=== PATIENT | female | born 1945 | race Caucasian/White ===

== ENCOUNTER 2018-08-09 09:41 | Inpatient (IN) ==
--- NOTE | 2018-08-04 14:30 | MH ---
cc: Megan Reagan MD DATE OF ADMISSION: 08/09/2018 DATE OF ADMISSION: 08/09/2018. ADMITTING DIAGNOSIS: Osteoarthritic degeneration right hip; now being admitted for right total hip arthroplasty. HISTORY OF PRESENT ILLNESS: A pleasant 72-year-old female is being admitted today for right total hip arthroplasty with severe painful osteoarthritic degeneration, right hip. PAST MEDICAL HISTORY: The patient has a history of heart disease, hypertension, low back pain. CURRENT MEDICATIONS: Include: 1. Paroxetine. 2. Metoprolol. 3. Hydrochlorothiazide. 4. Alendronate. 5. Metformin. 6. Zetia. 7. Avastin. PAST SURGICAL HISTORY: Include open reduction internal fixation of the wrist. REVIEW OF SYSTEMS: Noncontributory. FAMILY HISTORY: Noncontributory. She drinks socially and has not smoked in 30 years. ALLERGIES: SHE HAS ALLERGY TO IBUPROFEN. PHYSICAL EXAMINATION: GENERAL: We find a 72-year-old female, well-developed, well-nourished; alert and oriented x 3, complaining of pain in right hip. VITAL SIGNS: Blood pressure 117/73, pulse 72 and regular, respirations 16, temperature 98.0, pulse oximetry 96% on room air. HEENT: Eyes PERRLA, EOMI. Ears, nose, mouth clear. NECK: Supple. LUNGS: Clear. HEART: Regular rate. ABDOMEN: Soft, positive bowel sounds, nontender. EXTREMITIES: Reveal the right hip to have decreased range of motion. Neurovascularly intact to her toes. IMPRESSION: Severe painful osteoarthritic degeneration, right hip. PLAN: Admission for right total hip arthroplasty today. The patient was given prescription for postoperative pain control and anticoagulation therapy in the office. JArnold Reagan MD JRJuma/nikia , 01:55 PM , 02:02 PM
[2018-08-09] MEDS ORDERED: Chlorhexidine Gluconate 2% 1 Pack (2 Cloths) TOPICAL SCH (10:23)
[2018-08-09] MEDS ORDERED: Acetaminophen 325 MG Tablet PO PRN (10:30)
[2018-08-09] MEDS ORDERED: Chlorhexidine 4% Topical 120 APPLIC/120 ML Bottle TOPICAL SCH (10:30)
[2018-08-09] MEDS ORDERED: Post-op Orders (for Pharmacy) OTHER STA (10:31)
[2018-08-09] MEDS ORDERED: Bisacodyl 10 MG Supp RECTAL PRN (10:31)
[2018-08-09] MEDS ORDERED: Morphine Sulfate Inj 2 MG/ML Vial IV.PUSH PRN (10:31)
--- NOTE | 2018-08-09 10:37 | P.DCO ---
- Diagnosis (1) Status post total replacement of right hip Status: Acute - Physical Therapy Order: Evaluate and treat, Improve ambulation, Strength and gait training - Home Health Nursing Order: Medical education, Nursing assessment with vital signs - Case Management Consult Yes - Certification I have seen patient Kwasi Rogel on 08/09/18. My clinical findings support the need for the requested home health care services because: Limited ability to care for self, High risk of falls I certify that my clinical findings support that this patient is homebound because: Post-op weakness, Unsteady gait/balance, Unsafe to leave home unassisted
[2018-08-09] MEDS ORDERED: TRANEXAMIC ACID IV.SIG SCH ×4 (11:00)
[2018-08-09] MEDS ORDERED: Vancomycin Inj 1,000 MG in Sodium Chlor 0.9% Inj 250 ML IV.SIG SCH (11:00)
[2018-08-09] MEDS ORDERED: Sodium Chlor 0.9% Inj 80 ML, Bupivacaine Liposo PF 1.3% Inj 20 ML, Bupivacaine 0.25% In... P-ARTICULR SCH ×3 (11:00)
[2018-08-09] MEDS ORDERED: Sodium Chlor 0.9% Inj 500 ML IV.SIG SCH (11:00)
[2018-08-09] MEDS ORDERED: ceFAZolin 2 GM Premix Inj 2 GM/50 ML PIGGYBACK IV.SIG SCH (11:00)
[2018-08-09] MEDS ORDERED: SODIUM CHLOR 0.9% IV.SIG SCH ×4 (11:00)
--- NOTE | 2018-08-09 11:21 | P.CONIM ---
History of Present Illness Primary Care Provider: Ede Somers MD, PhD History of Present Illness: This is a 72-year-old female patient with past medical history which includes chronic kidney disease stage 3, Hypertension, diabetes mellitus type 2, hyperlipidemia, osteopenia, breast cancer status post radiation and lumpectomy, CAD and hyperparathyroidism. Patient presents the hospital today due to OA of right hip for right total hip replacement with Dr. Reagan. We have been consulted to assist with medical management postoperatively. Patient seen in pre-op holding information gathered from patient as well as prior computerized chart. Patient offers no specific complaints at this time, denies shortness of breath chest pain nausea vomiting diarrhea constipation fevers or chills. PMH: chronic kidney disease stage 3, Hypertension, diabetes mellitus type 2, hyperlipidemia, osteopenia, breast cancer status post radiation and lumpectomy, CAD and hyperparathyroidism PSxH: Colonoscopy, EGD, left breast lumpectomy, treatment of wrist fracture FMH: Reviewed and noncontributory Social History: Patient is , retired Rare EtOH use Former tobacco use no current tobacco use [facility] Social History Social History Substance History: No History of Abuse Second Hand Smoke Exposure: No Smoking Status: Former smoker Tobacco Type: Cigarettes How Often Do You Have a Drink Containing Alcohol: Monthly or less Recent Travel in [facility] within the Last 8 Weeks: No Recent Out of Country Travel within the Last 8 Weeks: No Medications and Allergies Allergies Allergy/AdvReac Type Severity Reaction Status Date / Time ibuprofen Allergy Severe Itching Verified 08/09/18 10:21 lisinopril Allergy Itching Verified 08/09/18 10:21 Home Medications Medication Instructions Recorded Confirmed Type Ca-D3-mag tn-stfl-kwd-walter-bor 1 tab PO EVERY OTHER DAY 08/02/18 08/09/18 History [Calcium 600-D3 Plus] acetaminophen [Tylenol Arthritis 650 mg PO Q8H PRN 08/02/18 08/09/18 History Pain] alendronate 70 mg PO WEEKLY 08/02/18 08/09/18 History atorvastatin 80 mg PO DAILY 08/02/18 08/09/18 History cinnamon bark [Cinnamon] 1,000 mg PO EVERY OTHER DAY 08/02/18 08/09/18 History cyanocobalamin (vitamin B-12) 1,000 mcg PO DAILY 08/02/18 08/09/18 History [Vitamin B-12] ezetimibe 10 mg PO DAILY 08/02/18 08/09/18 History hydrochlorothiazide 25 mg PO DAILY 08/02/18 08/09/18 History metformin 250 mg PO BID 08/02/18 08/09/18 History metoprolol tartrate 25 mg PO DAILY 08/02/18 08/09/18 History paroxetine HCl 12.5 mg PO DAILY 08/02/18 08/09/18 History Active Medications: Active Medications Acetaminophen (Tylenol) 650 mg PO Q8H PRN PRN Reason: ARTHRITIS PAIN Hydrocodone Bitart/Acetaminophen (Roosevelt 7.5/325) 1 tab PO Q4H PRN PRN Reason: PAIN LESS THAN 5 ON SCALE Hydrocodone Bitart/Acetaminophen (Roosevelt 7.5/325) 2 tab PO Q6H PRN PRN Reason: PAIN SCALE 5 TO 10 Al Hydroxide/Mg Hydroxide (Milk Of Magnesia Liq) 30 ml PO BID PRN PRN Reason: Mild Constipation Apixaban (Eliquis) 2.5 mg PO BID [facility] Atorvastatin Calcium (Lipitor) 80 mg PO DAILY [facility] Bisacodyl (Dulcolax Supp) 10 mg RECTAL DAILY PRN PRN Reason: SEVERE CONSITIPATION Calcium/Vitamin D (Oscal With D 250/125 Mg) 2 tab PO EVERY OTHER DAY [facility] Chlorhexidine Gluconate (Chlorhexidine 2% Cloth) 3 pack TOPICAL [employer] [facility] Stop: 08/12/18 10:22 Chlorhexidine Gluconate (Hibiclens 4% Topical) 1 applicatio TOPICAL [employer] [facility] Stop: 08/12/18 10:29 Sodium Chloride 80 ml/Bupivacaine Liposome 20 ml/Bupivacaine HCl 20 ml 0 ml P- ARTICULR [employer] [employer] [facility] Stop: 08/09/18 17:00 Cyanocobalamin (Vitamin B12) 1,000 mcg PO DAILY [facility] Ezetimibe (Zetia) 10 mg PO DAILY [facility] Hydrochlorothiazide (Hydrodiuril) 25 mg PO DAILY [facility] Lactated Ringer's (Lr 1000 Ml Inj) 1,000 mls @ 30 mls/hr IV.SIG .Q24H [facility] Stop: 08/12/18 10:29 Sodium Chloride (Ns Inj) 500 mls @ 30 mls/hr IV.SIG .Q10H [facility] Vancomycin HCl 1,000 mg/ (Sodium Chloride) 250 mls @ 250 mls/hr IV.SIG [employer] [facility] Stop: 08/12/18 10:29 Cefazolin Sodium/Dextrose (Ancef 2 Gm Premix Inj) 2 gm in 50 mls @ 100 mls/hr IV.SIG [employer] [facility] Stop: 08/13/18 10:59 Cefazolin Sodium 1,000 mg/ (Sodium Chloride) 100 mls @ 200 mls/hr IV.SIG Q6H [facility] Stop: 08/09/18 23:29 Lactated Ringer's (Lr 1000 Ml Inj) 1,000 mls @ 80 mls/hr IV.CONT .[id number] [facility] Tranexamic Acid 1,000 mg/ (Sodium Chloride) 110 mls @ 200 mls/hr IV.SIG [employer] [facility] [facility] Stop: 08/09/18 20:00 Tranexamic Acid 624 mg/ Sodium (Chloride) 106.24 mls @ 200 mls/hr IV.SIG [employer] [facility] Stop: 08/09/18 17:00 Lactulose (Lactulose Liq) 30 ml PO DAILY PRN PRN Reason: SEVERE CONSITIPATION Metformin HCl (Glucophage) 250 mg PO BID [facility] Metoprolol Tartrate (Lopressor) 25 mg PO [employer] [facility] Metoprolol Tartrate (Lopressor) 25 mg PO DAILY [facility] Morphine Sulfate (Morphine Inj) 2 mg IV.PUSH Q3H PRN PRN Reason: BREAKTHROUGH PAIN Multivitamins/Minerals (Theragran-M) 1 tab PO BID [facility] Stop: 10/08/18 20:59 Ondansetron HCl (Zofran Odt) 4 mg PO Q6H PRN PRN Reason: NAUSEA OR VOMITING Paroxetine HCl (Paxil Cr) 12.5 mg PO DAILY [facility] Povidone Iodine (Betadine 5% Antisepsis Kit) 1 applicatio EACH NARE [employer] [facility] Stop: 08/12/18 10:22 Senna/Docusate Sodium (Manju-Colace) 1 tab PO BID [facility] Sennosides (Senokot) 17.2 mg PO BID PRN PRN Reason: Moderate Constipation Sodium Chloride (Ns Flush) 2 ml IV.FLUSH BID [facility] Sodium Chloride (Ns Flush) 2 ml IV.FLUSH PRN PRN PRN Reason: FLUSH AFTER USING IV ACCESS Physical Exam Vital signs: Last Vital Signs Temp 98.4 F 08/09/18 10:29 Pulse 66 08/09/18 10:29 Resp 18 08/09/18 10:29 BP 151/78 H 08/09/18 10:29 Pulse Ox 100 08/09/18 10:29 Narrative: GENERAL: This is a well-nourished, well-developed patient, in no apparent distress. CARDIOVASCULAR: Regular rate and rhythm RESPIRATORY: Clear to auscultation. Breath sounds equal bilaterally. GASTROINTESTINAL: Abdomen soft, non-tender, nondistended. Normoactive bowel sounds MUSCULOSKELETAL: Extremities without clubbing, cyanosis, or edema. NEURO: Alert & Oriented x4 to person, place, time, situation. Moves all ext x4 Assessment and Plan Assessment (1) Status post total replacement of right hip: Code(s): Z96.641 - Presence of right artificial hip joint Status: Acute Plan This is a 72-year-old female patient with past medical history which includes chronic kidney disease stage 3, Hypertension, diabetes mellitus type 2, hyperlipidemia, osteopenia, breast cancer status post radiation and lumpectomy, CAD and hyperparathyroidism. Patient presents the hospital today due to OA of right hip for right total hip replacement with Dr. Reagan. We have been consulted to assist with medical management postoperatively. Patient seen in pre-op holding information gathered from patient as well as prior computerized chart. Patient offers no specific complaints at this time endorses, denies shortness of breath chest pain nausea vomiting diarrhea constipation fevers or chills. OA Patient presents the hospital today due to OA of right hip for right total hip replacement with Dr. Reagan Chronic kidney disease stage 3 Avoid nephrotoxins Monitor renal function Hypertension Continue patient's home metoprolol Diabetes mellitus type 2 Continue patient's home metformin Diabetic diet Accuchecks ACHS Hyperlipidemia Continue home atorvastatin and Zetia Breast cancer status post radiation and lumpectomy Depression Continue patient's home Paroxetine Hyperparathyroidism Continue home medications SCD prophylaxis per Orthopedic surgery Attending Attestation Patient examined. Assessment and plan formulated with Danuta Cruz PA-C. I agree with the above.
[2018-08-09] MEDS ORDERED: Dextrose 50% in Water 50 ML Vial IV.PUSH PRN (11:24)
[2018-08-09] MEDS: Metoprolol Tartrate 25 MG Tablet PO SCH (11:27)
[2018-08-09] MEDS ORDERED: Tranexamic Acid Inj 1,000 MG in Sodium Chlor 0.9% Inj 100 ML IV.SIG SCH (14:00)
[2018-08-09] MEDS ORDERED: Lidocaine PF 1% Inj 5 ML Syringe OTHER ONE (14:51)
[2018-08-09] MEDS ORDERED: Neostigmine Inj 5 MG/5 ML Syringe IV.PUSH ONE (14:51)
[2018-08-09] MEDS ORDERED: Glycopyrrolate Inj 1 MG/5 ML Syringe IV.PUSH ONE (14:51)
[2018-08-09] MEDS ORDERED: Sugammadex Inj 200 MG/2 ML Vial IV.PUSH ONE (16:59)
[2018-08-09] MEDS ORDERED: fentaNYL Citrate Inj 100 MCG/2 ML Ampul ONE (17:18)
--- NOTE | 2018-08-09 17:26 | P.BOP ---
- Preoperative Diagnosis (1) Osteoarthritis of right hip - Postoperative Diagnosis (1) Status post total replacement of right hip Date of procedure: 08/09/18 Procedure: Right total Hip Arthroplasty Implants: see implant record Anesthesia: GETA Surgeon: Megan Reagan MD Automobile Mechanic Motor: Dina Anthony Estimated blood loss (mL): 400 Urine output (mL): 500 (staright cath) Pathology: none sent Condition: stable Disposition: PACU
--- NOTE | 2018-08-09 17:39 | XR ---
EXAM DATE: 08/09/2018 5:35 PM EDT AGE/SEX: 72 years / Female INDICATIONS: Post op right hip surgery. CLINICAL DATA: This is the patient's initial encounter. Patient reports that signs and symptoms have been present for 1 day and indicates a pain score of 3/10. MEDICAL/SURGICAL HISTORY: None. None. COMPARISON: No prior exams available for comparison. FINDINGS: A single AP view of the right hip was obtained and demonstrates the patient status post arthroplasty. The femoral and acetabular components are intact and normal alignment. There is soft tissue swelling and gas. CONCLUSION: Expected postoperative changes status post arthroplasty Electronically signed by: Hu Lan MD 08/09/2018 5:38 PM EDT
[2018-08-09] MEDS: Insulin NovoLOG Aspart Correctional Sugar Inj SQ SCH ×3 (17:53→20:31)
[2018-08-09] MEDS: Calcium/Vitamin D 250/125 MG Tablet PO SCH (17:53)
[2018-08-09] MEDS ORDERED: *Meperidine Inj 25 MG/ML Vial PERIprocedural Use ONLY ONE (17:55)
--- NOTE | 2018-08-09 17:55 | MP ---
cc: Megan Reagan MD DATE OF OPERATION: 08/09/2018 PREOPERATIVE DIAGNOSIS: Osteoarthritic degeneration, right hip. POSTOPERATIVE DIAGNOSIS: Osteoarthritic degeneration, right hip. PROCEDURE PERFORMED: Right total hip arthroplasty using Aesculap components, size 8 standard stem with a 32 x -4 ceramic head, a size 50 cup with one 28 mm x 6.5 mm screw with a 32 E liner. SURGEON: Megan Reagan MD RADIOLOGY SPECIALIST: CALIN Yu ANESTHESIA: General intubation. DESCRIPTION OF PROCEDURE: The patient was brought to the Operating Room, where after successful induction of spinal anesthesia was placed on the operating room table in the left lateral decubitus position. The right hip, thigh and leg were prepped and draped in the usual manner. A posterolateral approach was then utilized by making an incision over the proximal portion of the femur lateral aspect, carried across the greater trochanter, carried posterior in a curved incision toward the buttock. The incision was carried down through the subcutaneous tissue, through the fibers of the tensor fascia bo and gluteus shayne to expose the greater trochanteric bursa. This was then removed by sharp and blunt dissection. The hip was then internally rotated to expose the insertions of the short external rotators of the hip and were incised at their insertion into the greater trochanter and reflected posterior to protect the sciatic nerve. These were held with a Charnley retractor to better visualize the hip joint. The capsule was identified and removed by sharp dissection. The hip was then dislocated by internal rotation and flexion of the hip. The femoral calcar was then measured using the trial components for the appropriate length cut of the neck using an oscillating saw. After the cut was made the head was removed. The acetabulum was then approached and measured, the acetabulum reamed with the acetabular reamers. Next, the femoral calcar was approached by first inserting a canal finder followed by rigid reamers, followed by a cookie-cutter to the appropriate size, in this case being a #15. The broach was left in place and a planer used to plane the calcar to a smooth finish. The broach was then removed. The trial components were then inserted into place, the hip reduced, found to track smoothly with no evidence of subluxation or dislocation. All trial components were removed. The wound was irrigated copiously with antibiotic solution and Water Pik. The actual components were then inserted and impacted into place using Aesculap components, size 8 standard stem with a 32 x -4 ceramic head, a size 50 cup with one 28 mm x 6.5 mm screw with a 32 E liner. The hip was reduced, found to track smoothly with no evidence of subluxation or dislocation. The wound was irrigated copiously with antibiotic solution, meticulous hemostasis achieved. The sciatic nerve was identified and protected throughout the procedure. Then, 60 mL of a mixture of Exparel with normal saline and 0.25% Marcaine plain was injected around the anterior hip joint for extra pain control. The capsule was then approximated using interrupted #1 Vicryl, he deep fascia approximated with running #2 Quill and the subcutaneous tissue approximated with interrupted running 2-0 and 3-0 Quill and a Prineo dressing. No drain utilized. Estimated blood loss was 400 mL. Sponge and suture counts were correct. The patient tolerated the procedure well and left the Operating Room in satisfactory condition. CALIN Brady, was present during the entire procedure to include patient positioning as well as the procedure. The medical necessity of a nurse practitioner patient services assistant was indicated in this case due to the surgical complexity of the case itself. During the surgical case, the surgical technology instructor was working on the back table while my surgical technology instructor CALIN was directly assisting me. MD MARGOTH May/dagoberto , 04:40 PM , 04:46 PM
[2018-08-09] MEDS ORDERED: *Ondansetron Inj 4 MG/2 ML Vial PERIprocedural Use ONLY ONE (18:05)
[2018-08-09] MEDS ORDERED: *morphine SULFATE 4 MG/ML PERIprocedure ONLY ONE (18:05)
[2018-08-09] MEDS: Multivitamin/Minerals Therapeutic Tablet PO SCH (20:31)
[2018-08-09] MEDS: Senna/Docusate Sodium 8.6/50 MG Tablet PO SCH (20:32)
[2018-08-09] MEDS: ceFAZolin 1 GM Premix Inj 1 GM/50 ML IV.SIG SCH (20:34)
[2018-08-10] MEDS: ceFAZolin 1 GM Premix Inj 1 GM/50 ML IV.SIG SCH ×2 (02:02→10:14)
[2018-08-10 07:26] LABS: Hematocrit 26.3 % (35.0-46.0)
[2018-08-10] MEDS ORDERED: hydroCHLOROthiazide 25 MG Tablet PO SCH (09:00)
--- NOTE | 2018-08-10 09:07 | P.PNIM ---
Physical Exam Vital signs: Last Vital Signs Temp 97.4 F L 08/10/18 03:29 Pulse 79 08/10/18 03:29 Resp 18 08/10/18 03:29 BP 117/57 L 08/10/18 03:29 Pulse Ox 98 08/10/18 05:27 Narrative: GENERAL: This is a well-nourished, well-developed patient, in no apparent distress. CARDIOVASCULAR: Regular rate and rhythm RESPIRATORY: Clear to auscultation. Breath sounds equal bilaterally. GASTROINTESTINAL: Abdomen soft, non-tender, nondistended. Normoactive bowel sounds MUSCULOSKELETAL: Extremities without clubbing, cyanosis, or edema. NEURO: Alert & Oriented x4 to person, place, time, situation. Moves all ext x4 Results Labs CBC & Chem 7: 08/10/18 05:43 Assessment and Plan Assessment (1) Status post total replacement of right hip: Code(s): Z96.641 - Presence of right artificial hip joint Status: Acute Plan This is a 72-year-old female patient with past medical history which includes chronic kidney disease stage 3, Hypertension, diabetes mellitus type 2, hyperlipidemia, osteopenia, breast cancer status post radiation and lumpectomy, CAD and hyperparathyroidism. Patient presents the hospital today due to OA of right hip for right total hip replacement with Dr. Reagan. We have been consulted to assist with medical management postoperatively. Patient seen in pre-op holding information gathered from patient as well as prior computerized chart. Patient offers no specific complaints at this time endorses, denies shortness of breath chest pain nausea vomiting diarrhea constipation fevers or chills. OA Patient presents the hospital today due to OA of right hip for right total hip replacement with Dr. Reagan Pt looks very comfortable today discussed snf placement with pt and CM. check bmp in AM Chronic kidney disease stage 3 Avoid nephrotoxins Monitor renal function Hypertension Continue patient's home metoprolol Diabetes mellitus type 2 Continue patient's home metformin Diabetic diet Accuchecks ACHS Hyperlipidemia Continue home atorvastatin and Zetia Breast cancer status post radiation and lumpectomy Depression Continue patient's home Paroxetine Hyperparathyroidism Continue home medications SCD prophylaxis per Orthopedic surgery Progress Note: Quality VTE Deep Vein Thrombosis/Pulmonary Embolism Present on Admission: No
--- NOTE | 2018-08-10 10:08 | P.PNOP ---
Subjective Interval history: Patient comfortable at the present time. Physical Exam Vital signs: Vital Signs 08/09/18 10:29 08/09/18 17:12 08/09/18 17:15 Temperature 98.4 F 96.2 F L 96.2 F L Pulse Rate 66 66 59 L Respiratory Rate 18 14 14 Blood Pressure 151/78 H 92/52 L 86/48 L Pulse Oximetry 100 99 96 08/09/18 17:30 08/09/18 17:45 08/09/18 18:00 Temperature 96.2 F L 97.4 F L 97.4 F L Pulse Rate 58 L 58 L 60 Respiratory Rate 14 14 14 Blood Pressure 124/58 L 135/58 L 122/58 L Pulse Oximetry 96 98 99 08/09/18 18:15 08/09/18 18:30 08/09/18 19:41 Temperature 97.4 F L 97.4 F L 97.4 F L Pulse Rate 62 70 72 Respiratory Rate 14 14 14 Blood Pressure 102/58 L 101/51 L 104/52 L Pulse Oximetry 100 98 99 08/09/18 20:10 08/09/18 20:15 08/09/18 23:15 Temperature 98.0 F 97.5 F L Pulse Rate 69 82 Respiratory Rate 18 18 Blood Pressure 128/81 102/55 L Pulse Oximetry 98 98 98 08/10/18 03:29 08/10/18 05:27 08/10/18 08:00 Temperature 97.4 F L 97.5 F L Pulse Rate 79 76 Respiratory Rate 18 16 Blood Pressure 117/57 L 112/55 L Pulse Oximetry 97 98 92 L Intake & Output 08/09/18 08/10/18 08/10/18 18:59 06:59 18:59 Intake Total 2406.24 / 2406.24 1580 / 1580 Output Total 900 / 900 Balance 1506.24 / 1506.24 1580 / 1580 Weight 62.4 kg 62.4 kg Intake: IV 1406.24 / 1406.24 1100 / 1100 LR 1000 mL Inj 1,000 ML @ 80 1000 / 1000 mls/hr IV.CONT .[id number] [facility]UAN[facility]SE Rx# :[id number] LR 1000 mL Inj 1,000 ML @ 30 1000 / 1000 mls/hr IV.SIG .Q24H [facility] Rx#: [id number] Cyklokapron Inj 624 MG In NS 106.24 / 106.24 Inj 100 ML @ 200 mls/hr IV.SIG ONCE [facility] Rx#:[id number] Vancomycin Inj 1,000 MG In NS 250 / 250 Inj 250 ML @ 250 mls/hr IV.SIG REGULATORY SPECIALIST JUANJOSE Rx#:[id number] Ancef 1 GM Premix Inj 1 gm In 100 / 100 50 ml @ 100 mls/hr IV.SIG Q6H [facility]SE Rx#:[id number] Ancef 2 GM Premix Inj 2 gm In 50 / 50 50 ml @ 100 mls/hr IV.SIG REGULATORY SPECIALIST JUANJOSE Rx#:[id number] Oral 480 / 480 Anesthesia Amount 1000 / 1000 Output: Urine 500 / 500 Estimated Blood Loss 400 / 400 Other: # Voids 1 Date of Last Bowel Movement 08/08/18 # Bowel Movements 0 Weight On Admission 62.4 kg - Constitutional no acute distress Results - Labs CBC & Chem 7: 08/10/18 05:43 Laboratory Results - last 24 hr 08/09/18 08/09/18 08/09/18 10:25 15:57 17:37 Hgb 10.0 L Hct 27.0 L POC Glucose 147 H Blood Type O Positive Blood Type Recheck Not needed Antibody Screen Negative 08/09/18 08/10/18 08/10/18 20:20 02:05 05:43 Hgb 9.0 L Hct 26.3 L POC Glucose 176 H 222 H Blood Type Blood Type Recheck Antibody Screen 08/10/18 07:40 Hgb Hct POC Glucose 148 H Blood Type Blood Type Recheck Antibody Screen - Imaging Impressions Hip X-Ray 08/09/18 10:31 CONCLUSION: Expected postoperative changes status post arthroplasty Assessment and Plan - Problem List (1) Status post total replacement of right hip Code(s): Z96.641 - Presence of right artificial hip joint Status: Acute - Attending Attestation Attending Attestation: Patient is currently lying in bed. She is getting ready for physical therapy. Dressing is dry and intact and she is neurovascularly intact to her toes with no calf tenderness. Plan is for the patient undergo physical therapy today and eventually be discharged to group home facility for continuation of care.
[2018-08-10] MEDS: Insulin NovoLOG Aspart Correctional Sugar Inj SQ SCH ×4 (10:09→22:56)
[2018-08-10] MEDS: Senna/Docusate Sodium 8.6/50 MG Tablet PO SCH ×2 (10:12→20:45)
[2018-08-10] MEDS: Multivitamin/Minerals Therapeutic Tablet PO SCH ×2 (10:15→20:45)
[2018-08-10] MEDS: Metoprolol Tartrate 25 MG Tablet PO SCH ×2 (10:16→15:43)
[2018-08-10] MEDS: Ezetimibe 10 MG Tablet PO SCH (10:17)
[2018-08-11 05:43] LABS: Hematocrit 23.7 % (35.0-46.0); Hemoglobin 8.5 gm/dL (11.6-15.3)
[2018-08-11 06:11] LABS: Calcium 8.4 mg/dL (8.5-10.1); Carbon Dioxide 31.2 meq/L (21.0-32.0); Potassium 3.4 meq/L (3.5-5.1)
--- NOTE | 2018-08-11 08:13 | P.PNOP ---
Subjective Interval history: Patient comfortable today without complaints. Ready for discharge. Physical Exam Vital signs: Vital Signs 08/10/18 12:00 08/10/18 16:00 08/10/18 20:00 Temperature 98.8 F 98.6 F 99.1 F Pulse Rate 79 80 97 H Respiratory Rate 16 16 18 Blood Pressure 105/54 L 116/57 L 135/63 Pulse Oximetry 96 96 92 L 08/10/18 21:15 08/10/18 22:20 08/11/18 00:00 Temperature 98.6 F Pulse Rate 92 H Respiratory Rate 17 17 18 Blood Pressure 143/65 H Pulse Oximetry 92 L 08/11/18 01:00 08/11/18 04:00 Temperature 99.4 F Pulse Rate 95 H Respiratory Rate 17 18 Blood Pressure 150/61 H Pulse Oximetry 96 Intake & Output 08/10/18 08/11/18 08/11/18 18:59 06:59 18:59 Intake Total 2250 / 2250 Balance 2250 / 2250 Intake: IV 1050 / 1050 LR 1000 mL Inj 1,000 ML @ 80 1000 / 1000 mls/hr IV.CONT .[id number] [facility]UANJOSE Rx# :[id number] Ancef 1 GM Premix Inj 1 gm In 50 / 50 50 ml @ 100 mls/hr IV.SIG Q6H JU[facility]SE Rx#:[id number] Oral 1200 / 1200 Other: # Voids 4 2 Date of Last Bowel Movement 08/08/18 08/08/18 # Bowel Movements 0 - Constitutional no acute distress Results - Labs CBC & Chem 7: 08/11/18 04:25 08/11/18 04:25 Laboratory Results - last 24 hr 08/10/18 08/10/18 08/10/18 12:07 17:02 20:27 Hgb Hct Sodium Potassium Chloride Carbon Dioxide Anion Gap BUN Creatinine Estimated GFR POC Glucose 172 H 138 H 141 H Random Glucose Calcium 08/11/18 08/11/18 04:25 04:25 Hgb 8.5 L Hct 23.7 L Sodium 125 L Potassium 3.4 L Chloride 85 L Carbon Dioxide 31.2 Anion Gap 9 BUN 9 Creatinine 0.91 Estimated GFR 61 L POC Glucose Random Glucose 123 H Calcium 8.4 L Assessment and Plan - Problem List (1) Status post total replacement of right hip Code(s): Z96.641 - Presence of right artificial hip joint Status: Acute - Attending Attestation Attending Attestation: Dressing is dry and intact patient lying in bed. She has no calf tenderness and moving extremities well. Neurovascularly intact. Plan is for patient to be discharged to [facility] facility when bed available. She is being discharged in good condition. Follow-up in the office in 1 week time.
[2018-08-11] MEDS: Ezetimibe 10 MG Tablet PO SCH (09:49)
[2018-08-11] MEDS: Multivitamin/Minerals Therapeutic Tablet PO SCH ×2 (09:49→21:15)
[2018-08-11] MEDS: Metoprolol Tartrate 25 MG Tablet PO SCH ×2 (09:50→14:39)
[2018-08-11] MEDS: Senna/Docusate Sodium 8.6/50 MG Tablet PO SCH ×2 (09:50→21:15)
--- NOTE | 2018-08-11 10:12 | P.PNIM ---
Subjective Interval history: feeling great Physical Exam Vital signs: Last Vital Signs Temp 99.4 F 08/11/18 04:00 Pulse 95 H 08/11/18 04:00 Resp 18 08/11/18 04:00 BP 150/61 H 08/11/18 04:00 Pulse Ox 96 08/11/18 04:00 Narrative: GENERAL: This is a well-nourished, well-developed patient, in no apparent distress. CARDIOVASCULAR: Regular rate and rhythm RESPIRATORY: Clear to auscultation. Breath sounds equal bilaterally. GASTROINTESTINAL: Abdomen soft, non-tender, nondistended. Normoactive bowel sounds MUSCULOSKELETAL: Extremities without clubbing, cyanosis, or edema. NEURO: Alert & Oriented x4 to person, place, time, situation. Moves all ext x4 Results Labs CBC & Chem 7: 08/11/18 04:25 08/11/18 04:25 Assessment and Plan Assessment (1) Status post total replacement of right hip: Code(s): Z96.641 - Presence of right artificial hip joint Status: Acute (2) Hyponatremia: Code(s): E87.1 - Hypo-osmolality and hyponatremia Status: Acute Plan This is a 72-year-old female patient with past medical history which includes chronic kidney disease stage 3, Hypertension, diabetes mellitus type 2, hyperlipidemia, osteopenia, breast cancer status post radiation and lumpectomy, CAD and hyperparathyroidism. Patient presents the hospital today due to OA of right hip for right total hip replacement with Dr. Reagan. We have been consulted to assist with medical management postoperatively. Patient seen in pre-op holding information gathered from patient as well as prior computerized chart. Patient offers no specific complaints at this time endorses, denies shortness of breath chest pain nausea vomiting diarrhea constipation fevers or chills. OA Patient presents the hospital due to OA of right hip for right total hip replacement with Dr. Reagan Pt looks very comfortable today discussed snf placement with pt and CM. dc later today if bmp improved hyponatremia. felt to be hypovolemic hyponatremia ns with kcl and recheck bmp later today. dc if better to snf. hctz held. Chronic kidney disease stage 3 Avoid nephrotoxins Monitor renal function Hypertension Continue patient's home metoprolol Diabetes mellitus type 2 Continue patient's home metformin Diabetic diet Accuchecks ACHS Hyperlipidemia Continue home atorvastatin and Zetia Breast cancer status post radiation and lumpectomy Depression Continue patient's home Paroxetine Hyperparathyroidism Continue home medications SCD prophylaxis per Orthopedic surgery Progress Note: Quality VTE Deep Vein Thrombosis/Pulmonary Embolism Present on Admission: No
--- NOTE | 2018-08-11 10:51 | MD ---
cc: Megan Reagan MD DATE OF DISCHARGE: 08/11/2018 ADMITTING DIAGNOSIS: Osteoarthritic degeneration, right hip. DISCHARGE DIAGNOSIS: Osteoarthritic degeneration, right hip. DISCHARGE SUMMARY IS FOLLOWS: This pleasant 72-year-old female who was admitted on 08/09/2018 with osteoarthritic degeneration, right hip for which she underwent a right total hip arthroplasty. She received a course of prophylactic IV antibiotics and within 23 hours, started on anticoagulation therapy. She continued to improve; tolerating food and fluid well and physical therapy and followed by the medical physician and was discharged on second postoperative day to shelter facility in good condition with instructions for continuation of care. She is discharged with prescription for postoperative pain control and will be continued on anticoagulation therapy and has an appointment for followup in the office. JMD MARGOTH Delgado/nikia , 08:19 AM , 08:23 AM
[2018-08-11] MEDS: Insulin NovoLOG Aspart Correctional Sugar Inj SQ SCH ×4 (14:39→21:28)
[2018-08-11] MEDS: Calcium/Vitamin D 250/125 MG Tablet PO SCH (14:40)
[2018-08-11 15:52] LABS: Calcium 8.7 mg/dL (8.5-10.1); Carbon Dioxide 29.1 meq/L (21.0-32.0); Potassium 3.6 meq/L (3.5-5.1)
[2018-08-11] MEDS ORDERED: Sodium Chloride 1 GM Tablet PO ONE (18:00)
[2018-08-11] MEDS: Sodium Chloride 1 GM Tablet PO SCH (21:15)
[2018-08-12 07:22] LABS: Calcium 8.3 mg/dL (8.5-10.1); Carbon Dioxide 28.9 meq/L (21.0-32.0); Potassium 4.1 meq/L (3.5-5.1)
[2018-08-12] MEDS: Insulin NovoLOG Aspart Correctional Sugar Inj SQ SCH (08:51)
[2018-08-12] MEDS: Metoprolol Tartrate 25 MG Tablet PO SCH (08:51)
[2018-08-12] MEDS: Ezetimibe 10 MG Tablet PO SCH (08:52)
[2018-08-12] MEDS: Multivitamin/Minerals Therapeutic Tablet PO SCH (08:53)
[2018-08-12] MEDS: Senna/Docusate Sodium 8.6/50 MG Tablet PO SCH (08:54)
[2018-08-12] MEDS: Sodium Chloride 1 GM Tablet PO SCH (08:57)
--- NOTE | 2018-08-12 10:13 | P.PNIM ---
Subjective Interval history: feels great Physical Exam Vital signs: Last Vital Signs Temp 99.4 F 08/12/18 04:00 Pulse 88 08/12/18 04:00 Resp 17 08/12/18 04:00 BP 122/58 L 08/12/18 04:00 Pulse Ox 96 08/12/18 04:00 Narrative: GENERAL: This is a well-nourished, well-developed patient, in no apparent distress. CARDIOVASCULAR: Regular rate and rhythm RESPIRATORY: Clear to auscultation. Breath sounds equal bilaterally. GASTROINTESTINAL: Abdomen soft, non-tender, nondistended. Normoactive bowel sounds MUSCULOSKELETAL: Extremities without clubbing, cyanosis, or edema. NEURO: Alert & Oriented x4 to person, place, time, situation. Moves all ext x4 Results Labs CBC & Chem 7: 08/11/18 04:25 08/12/18 05:07 Assessment and Plan Assessment (1) Status post total replacement of right hip: Code(s): Z96.641 - Presence of right artificial hip joint Status: Acute (2) Hyponatremia: Code(s): E87.1 - Hypo-osmolality and hyponatremia Status: Acute Plan This is a 72-year-old female patient with past medical history which includes chronic kidney disease stage 3, Hypertension, diabetes mellitus type 2, hyperlipidemia, osteopenia, breast cancer status post radiation and lumpectomy, CAD and hyperparathyroidism. Patient presents the hospital today due to OA of right hip for right total hip replacement with Dr. Reagan. We have been consulted to assist with medical management postoperatively. Patient seen in pre-op holding information gathered from patient as well as prior computerized chart. Patient offers no specific complaints at this time endorses, denies shortness of breath chest pain nausea vomiting diarrhea constipation fevers or chills. OA Patient presents the hospital due to OA of right hip for right total hip replacement with Dr. Reagan Pt looks very comfortable today discussed snf placement with pt and CM. dc to snf hyponatremia. felt to be hypovolemic hyponatremia ns with kcl and salt tab. held hctz. na and k much improved dc ivf dc to snf. Chronic kidney disease stage 3 Avoid nephrotoxins Monitor renal function Hypertension Continue patient's home metoprolol Diabetes mellitus type 2 Continue patient's home metformin Diabetic diet Accuchecks ACHS Hyperlipidemia Continue home atorvastatin and Zetia Breast cancer status post radiation and lumpectomy Depression Continue patient's home Paroxetine Hyperparathyroidism Continue home medications SCD prophylaxis per Orthopedic surgery Progress Note: Quality VTE Deep Vein Thrombosis/Pulmonary Embolism Present on Admission: No
== END 2018-08-12 10:20 ==
LOC: HSDC 09:41 → EDSTATUS 13:30 → N06 20:00
PROVIDERS: ADMIT Surgery; ATTEND Surgery